=== PATIENT | male | born 1930 | race Caucasian/White ===

== ENCOUNTER 2016-10-03 08:18 | Emergency (ER) | payer MEDICARE, BC ==
[~2016-10-03] VITALS: Ht 175.3 cm; Wt 101.0 kg
[~2016-10-03 08:18] MED LIST: ALBU18HF2 INH; ALLO100T PO; AMLO10TA2 PO; ASCO500C16 PO; DABI150C PO; FURO-153 PO; GABA-338 PO; GLIP-192 PO; HYDR-4180 PO; ISOS30TA PO; LOSA100T44 PO; MECL-103 PO; METF500T4 PO; METO-277 PO; NITR0.4T39 SL; OMEP40CA52 PO; POTA10TA10 PO; PRAV80TA23 PO; [UNRECOGNIZED DRUG - CODE] PO
[2016-10-03 08:20] VITALS: Ht 175.3 cm; Wt 101.0 kg
--- OUTSIDE RECORDS SUMMARY | 2016-10-03 08:25 | XMS REPORT | Continuity of Care Document ---
Author Author [facility] Organization [facility] Address Unknown Phone Unavailable Support Name Relationship Address Phone CAIO MURRAY DO Caregiver [employer] [address] [place] [address] [place] [address] ANTIONE HANNA Next Of Kin [address] [place] [address] Insurance Providers Payer Name Policy Number Subscriber Name Relationship Medicare [id number] Subha Turner 18 Self [facility] [id number] Subha Turner 18 Self Advance Directives Directive Response Recorded Date/Time Ordered Resuscitation Status Full Code 05/21/14 5:27pm Resuscitation Documents on File Y "I THINK SO" 05/21/14 5:01pm Chief Complaint and Reason for Visit Chief Complaint DEHYDRATION,INFLUENZA Reason for Visit Influenza A Problems Medical Problems Problem Onset Date Status CAD (coronary artery disease) 04/26/2014 Active Influenza A 05/22/2014 Active Surgical Problems Problem Onset Date Recorded Date/Time Status S/P angioplasty 04/27/2014 04/27/2014 10:34am Active Medications Medication Dose Route Sig Days/Qty Instructions Order Date Discontinued Date Status [Metformin] 04/25/14 04/25/14 Discontinued Dabigatran Etexilate Mesylate 1 Cap PO TWICE A DAY TAKE WITH FULL GLASS OF WATER. 04/25/14 05/22/14 Discontinued Allopurinol 1 Tab PO DAILY 04/25/14 Active Amlodipine Besylate 10 Mg PO DAILY 04/25/14 Active Ubidecarenone DAILY 04/25/14 Active Cinnamon Bark 1 Mg PO DAILY 04/25/14 05/22/14 Discontinued Fenofibrate 04/25/14 Active Folic Acid 1 Tab PO DAILY 04/25/14 Active Glipizide 1 Tab PO DAILY 04/25/14 Active Hydralazine HCl 1 Tab PO DAILY 04/25/14 04/26/14 Discontinued Isosorbide Mononitrate 1 Tab PO DAILY 04/25/14 Active Potassium Chloride DAILY 04/25/14 Active Furosemide 1 Tab PO DAILY 04/25/14 Active Losartan Potassium 100 Mg PO DAILY 04/25/14 Active Meclizine HCl 25 Mg PO NEEDED Take 1 tablet, by mouth, 2 times a day. 04/25/14 05/22/14 Discontinued Metoprolol Succinate 50 Mg PO DAILY 04/25/14 Active Omeprazole 1 Cap PO DAILY 04/25/14 Active Pravastatin Sodium BEDTIME 04/25/14 Active Ascorbic Acid 1 Cap PO DAILY 04/25/14 Active Vitamin E Mixed 400 Unit PO DAILY 04/25/14 05/22/14 Discontinued Metformin HCl 500 Mg PO TWICE A DAY 04/25/14 Active Acetaminophen/Diphenhydramine 1 Tab PO BEDTIME PRN INSOMNIA 04/26/14 05/22/14 Discontinued Gabapentin 1 Cap PO TWICE A DAY 04/26/14 Active Hydralazine HCl 1 Tab PO BEDTIME BEST TAKEN WITH MEALS. 04/26/1405/22 Discontinued Saw [place] 80 Mg PO TWICE A DAY 04/26/14 05/22/14 Discontinued Hydralazine HCl 1 Tab PO BEDTIME 04/26/14 05/21/14 Discontinued Nitroglycerin 0.4 Mg SL NEEDED PRN CHEST PAIN 04/26/14 Active Fluticasone Propionate 2 Jessie EA NOSTRIL DAILY 04/26/14 Active Garlic 1 Cap PO DAILY 04/26/14 05/22/14 Discontinued Aspirin 81 Mg PO DAILY 30 Days 04/26/14 05/22/14 Discontinued Dabigatran Etexilate Mesylate 1 Cap PO TWICE A DAY TAKE WITH FULL GLASS OF WATER. 05/21/14 Active Meclizine HCl 25 Mg PO TWICE A DAY PRN VERTIGO 1 Qty 05/22/14 Active Acetaminophen 650 Mg PO Every 6 Hours PRN FEVER/DISCOMFORT 1 Days 05/22 Active Benzonatate 100 Mg PO THREE TIMES A DAY PRN COUGH 42 Qty 05/22/14 Active Oseltamivir Phosphate 75 Mg PO TWICE A DAY 4 Days Take 2 (75 mg) capsules , by mouth, two times a day. 05/22/14 Active Albuterol Sulfate 2 Puff INH Every 6 Hours PRN COUGH/CONGESTION 1 Days 05/22/14 Active Social History Social History Problem Response Recorded Date/Time Hx Substance Use No 04/27/2014 9:57am Hx Alcohol Use No 04/27/2014 9:57am Has the pt used tobacco in the last 12 months No 05/21/2014 5:02pm Query Response Start Date Stop Date Smoking Status Never smoker Hospital Discharge Instructions Instructions: Care Instructions: Reason for Hospitalization: DEHYDRATION/INFLUENZA I was in the hospital because (patient own words): "to SEE WHAT STRAIN OF FLU I HAVE" Discharge Activity: ACTIVITY TOLERATED Follow Up Appointments: DR MURRAY [phone] TUESDAY MAY 27, 2014 AT 9:30 AM WITH LAB DONE THAT DAY DR MULLER [phone] TuesdayJUNE 06 AT 1:20 PM Patient Instructions: RETURN TO CARE IMMEDIATELY IF COUGH, SHORTNESS OF BREATH, FEVER, MUSCLE ACHES,JOINT ACHES WORSEN. ALSO IF COUGH UP BLOOD OR CHEST PAIN OCCUR. PATIENT TO WEAR 1 LITER OF OXYGEN AT NIGHT. Condition at time of discharge: Good concerns. If your concern is of urgent nature, please present to the Emergency Department. Condition at time of discharge: Good Plan of Care Discharge Date 05/22/14 8:20pm Disposition 01 DISCHARGED HOME, SELF-CARE Instructions/Education Provided DI for Influenza -- Adult Prescriptions See Medications Section Functional Status Query Response Date Recorded Physical Hygiene Self May 22, 2014 6:04pm Disabilities Hearing May 22, 2014 6:04pm Devices Used Glasses Walker May 22, 2014 6:04pm Dressing Self May 22, 2014 6:04pm Ambulation Self May 22, 2014 6:04pm Diet Self May 22, 2014 6:04pm Mental Status Alert Oriented May 22, 2014 6:04pm Disabilities Hearing May 22, 2014 6:04pm Devices Used Glasses Walker May 22, 2014 6:04pm Physical Hygiene Self May 22, 2014 6:04pm Dressing Self May 22, 2014 6:04pm Ambulation Self May 22, 2014 6:04pm Diet Self May 22, 2014 6:04pm Allergies, Adverse Reactions, Alerts Allergen Type Severity Reaction Status Last Updated NKDA Allergy Unknown Active 04/25/14 Immunizations Name Given Type Hx Influenza Vaccination Y MAR 2014 Historical Hx Pneumococcal Vaccination Y UNKNOWN DATE Historical Hx Influenza Vaccination Y MAR 2014 Historical Vital Signs Acute Vital Signs Vital Response Date/Time Temperature (Fahrenheit) 98.1 deg F (96.8 - 99.1) Temperature (Calculated Celsius) 36.93521 degrees C (36.0 - 37.3) Temperature Source Temporal Pulse Rate (adult) 82 bpm (60 - 100) Respiratory Rate 20 breaths/min (10 - 20) O2 Sat by Pulse Oximetry 93 % (90 - 100) Oxygen Delivery Method Room Air Blood Pressure 144/75 mm Hg Blood Pressure Source Automatic Cuff Height 5 ft 9 in Weight 194 lb Body Mass Index 28.0 kg/m^2 Results Test Source Date Result Interp. Ref. Range Comments Activated Partial Thromboplast Time May 22, 2014 3:13pm 34.6 SEC N 24-36 COMMENT do nowOrdering r/o VTE No Alanine Aminotransferase (ALT/SGPT) May 22, 2014 6:09am 29 U/L N 21 -72 Albumin May 22, 2014 6:09am 3.4 G/DL L 3.5-5.0 Albumin/Globulin Ratio May 22, 2014 6:09am 1.3 RATIO N 1.1-2.2 Alkaline Phosphatase May 22, 2014 6:09am 70 U/L N 38-126 Anion Gap May 22, 2014 6:09am 8 MEQ/L N 5-15 Aspartate Amino Transf (AST/SGOT) May 22, 2014 6:09am 21 U/L N 17- 59 BUN/Creatinine Ratio May 22, 2014 6:09am 23 RATIO N 6-26 Band Neutrophils # May 21, 2014 5:50pm 0.9 T/MM3 - Band Neutrophils % May 21, 2014 5:50pm 5.0 % N 0-6 Basophils # (Auto) May 22, 2014 3:13pm 0.1 T/MM3 N 0-0.2 COMMENT do now Basophils # (Manual) May 21, 2014 5:50pm 0.0 T/MM3 N 0-0.2 Basophils % (Manual) May 21, 2014 5:50pm 0.0 % N 0-2 Basophils (%) (Auto) May 22, 2014 3:13pm 0.4 % N 0-2 COMMENT do now Blood Urea Nitrogen May 22, 2014 6:09am 21.0 MG/DL H 9-20 C-Reactive Protein May 21, 2014 5:50pm 182.5 MG/L H 0-9 Calcium Level May 22, 2014 6:09am 8.9 MG/DL N 8.4-10.2 Calculated Osmolality May 22, 2014 6:09am 268 MOSM/KG N 261-280 Carbon Dioxide Level May 22, 2014 6:09am 26 MEQ/L N 22-30 Chemistry Specimen Hemolysis May 22, 2014 6:09am < 15 0-25 0-25 : No Hemolysis.26-70: Slight Hemolysis - can falsely elevate K and Urine Protein. 71-285: Moderate Hemolysis - can falsely elevate K, Troponin I, CA 19-9, PTH, CSF GLucose, and Urine Protein, and can falsely decrease Phenytoin. 286-999: Gross Hemolysis - can falsely elevate K, Troponin I, CA 19-9, PTH, CSF Glucose, and Urine Protine, and can falsely decrease Phenytoin. Recommend specimen recollection. Chloride Level May 22, 2014 6:09am 103 MEQ/L N 98-107 Cholesterol Level April 27, 2014 4:21am 124 MG/DL L 132-199 Cholesterol/HDL Ratio April 27, 2014 4:21am 3.6 RATIO N 0-5.0 Creatinine May 22, 2014 6:09am 0.9 MG/DL DN 0.8-1.5 D-Dimer May 22, 2014 3:13pm < 150 NG/ML 0-230 <230 NG/ML D-DU= PRESUMPTIVE NEGATIVE FOR PE OR DVT>230 NG/ML D-DU=ADDITIONAL EVAL FOR PE OR DVT RECOMMENDED Eosinophils # (Auto) May 22, 2014 3:13pm 0.2 T/MM3 N 0-0.5 COMMENT do now Eosinophils # (Manual) May 21, 2014 5:50pm 0.0 T/MM3 N 0-0.5 Eosinophils % (Manual) May 21, 2014 5:50pm 0.0 % N 0-4 Eosinophils (%) (Auto) May 22, 2014 3:13pm 1.2 % N 0-4 COMMENT do now Erythrocyte Sedimentation Rate May 21, 2014 5:50pm 18 MM/HR H 0-15 Fibrin Degradation Products May 22, 2014 3:13pm Negative UG/ML - COMMENT do nowOrdering r/o VTE No Fibrinogen May 22, 2014 3:13pm 565 MG/DL H 135-357 COMMENT do nowOrdering r/o VTE No Globulin May 22, 2014 6:09am 2.7 G/DL N 2.4-3.6 Glomerular Filtration Rate Calc May 22, 2014 6:09am 81 - Glucometer May 22, 2014 5:32pm 127 mg/dL H 75-110 Glucose Level May 22, 2014 6:09am 109 MG/DL N 75-110 Group A Streptococcus Screen May 22, 2014 12:16am Negative - Strep culture confirmation to follow HDL Cholesterol Direct April 27, 2014 4:21am 34 MG/DL L 40-60 Hematocrit May 22, 2014 3:13pm 34.7 % L 41-53 COMMENT do now Hemoglobin May 22, 2014 3:13pm 11.8 GM/DL L 13.5-17.5 COMMENT do now Icterus Index May 22, 2014 6:09am < 2 0-7 Immature Granulocyte # (Auto) May 22, 2014 3:13pm 0.04 T/MM3 H 0.00 -0.03 COMMENT do now Immature Granulocyte % (Auto) May 22, 2014 3:13pm 0.3 % N 0.0-0.5 COMMENT do now Immunoglobulin G May 21, 2014 5:50pm 709.57 MG/DL N 700-1600 Immunoglobulin M May 21, 2014 5:50pm 54.62 MG/DL N 40-230 LDL Cholesterol, Calculated April 27, 2014 4:21am 52.8 L 66-159 Lymphocytes # (Auto) May 22, 2014 3:13pm 1.3 T/MM3 N 1-4.8 COMMENT do now Lymphocytes # (Manual) May 21, 2014 5:50pm 1.1 T/MM3 N 1-4.8 Lymphocytes % (Manual) May 21, 2014 5:50pm 6.0 % L 23-45 Lymphocytes (%) (Auto) May 22, 2014 3:13pm 9.1 % L 23-45 COMMENT do now Magnesium Level May 21, 2014 5:50pm 1.8 MG/DL N 1.6-2.3 Mean Corpuscular Hemoglobin May 22, 2014 3:13pm 28.2 UUG N 26-34 COMMENT do now Mean Corpuscular Hemoglobin Concent May 22, 2014 3:13pm 34.0 GM/DL N 31-37 COMMENT do now Mean Corpuscular Volume May 22, 2014 3:13pm 82.8 UM3 N 80-100 COMMENT do now Mean Platelet Volume May 22, 2014 3:13pm 10.1 UM3 N 9.4-12.4 COMMENT do now Monocytes # (Auto) May 22, 2014 3:13pm 1.5 T/MM3 H 0-0.8 COMMENT do now Monocytes # (Manual) May 21, 2014 5:50pm 0.0 T/MM3 N 0-0.8 Monocytes % (Manual) May 21, 2014 5:50pm 0.0 % N 0-9.0 Monocytes (%) (Auto) May 22, 2014 3:13pm 10.9 % H 0-9.0 COMMENT do now Neutrophils # (Auto) May 22, 2014 3:13pm 10.7 T/MM3 H 1.8-7.7 COMMENT do now Neutrophils # (Manual) May 21, 2014 5:50pm 16.1 T/MM3 H 1.8-7.7 Neutrophils % (Manual) May 21, 2014 5:50pm 89.0 % H 33-66 Neutrophils (%) (Auto) May 22, 2014 3:13pm 78.1 % H 33-66 COMMENT do now Phosphorus Level May 21, 2014 5:50pm 3.1 MG/DL N 2.5-4.5 Platelet Count May 22, 2014 3:13pm 124 T/MM3 L 130-400 COMMENT do now Potassium Level May 22, 2014 6:09am 3.6 MEQ/L N 3.6-5 Procalcitonin May 21, 2014 5:50pm 0.38 NG/ML - PCT </=0.5 ng/mL - sepsis not likely;PCT >0.5 and </=2 ng/mL - sepsis possible; PCT >2 ng/mL - sepsis likely; PCT >/=10 ng/mL - systemic inflammatory response - sepsis or septic shock highly indicated. Prothromb Time International Ratio May 22, 2014 3:13pm 1.28 H 0.81- 1.09 THERAPUTIC RANGE=2.00-3.00 FOR ANTI-THROMBOSIS THERAPUTIC RANGE=2.50- 3.50 FOR IMPLANTED VALVE RDW Standard Deviation May 22, 2014 3:13pm 49.8 FL N 36.9-50.2 COMMENT do now Red Blood Count May 22, 2014 3:13pm 4.19 M/MM3 L 4.50-5.90 COMMENT do now Sodium Level May 22, 2014 6:09am 137 MEQ/L N 134-144 Total Bilirubin May 22, 2014 6:09am 0.90 MG/DL N 0.20-1.30 Total Creatine Kinase May 21, 2014 5:50pm 196 U/L H 55-170 Total Protein May 22, 2014 6:09am 6.1 G/DL L 6.3-8.2 Triglycerides Level April 27, 2014 4:21am 186 MG/DL H 40-160 Troponin I May 22, 2014 6:09am 0.071 ng/ml N 0-0.12 Turbidity May 22, 2014 6:09am < 20 0-20 Urinalysis Comment May 21, 2014 9:30pm Microscopic not ind. - Has specimen been collected/obtained? Y Urine Bilirubin May 21, 2014 9:30pm Negative - Has specimen been collected/obtained? Y Urine Blood May 21, 2014 9:30pm Negative - Has specimen been collected/obtained? Y Urine Collection Type May 21, 2014 9:30pm Cleancatch-midstream - Has specimen been collected/obtained? Y Urine Color May 21, 2014 9:30pm Yellow - Has specimen been collected/obtained? Y Urine Glucose (UA) May 21, 2014 9:30pm Negative - Has specimen been collected/obtained? Y Urine Ketones May 21, 2014 9:30pm Negative - Has specimen been collected/obtained? Y Urine Leukocyte Esterase May 21, 2014 9:30pm Negative - Has specimen been collected/obtained? Y Urine Nitrite May 21, 2014 9:30pm Negative - Has specimen been collected/obtained? Y Urine Protein May 21, 2014 9:30pm Negative - Has specimen been collected/obtained? Y Urine Specific [place] May 21, 2014 9:30pm 1.020 - Has specimen been collected/obtained? Y Urine Turbidity May 21, 2014 9:30pm Clear - Has specimen been collected/obtained? Y Urine Urobilinogen May 21, 2014 9:30pm 1.0 EU/DL - Has specimen been collected/obtained? Y Urine pH May 21, 2014 9:30pm 5.5 - Has specimen been collected/ obtained? Y VLDL Cholesterol April 27, 2014 4:21am 37.2 MG/DL H 0-28 Venous Blood Lactate May 21, 2014 5:50pm 2.0 MMOL/L N 0.6-2.2 White Blood Count May 22, 2014 3:13pm 13.7 T/MM3 H 4.5-11.0 COMMENT do now Blood Culture Peripheral Blood May 21, 2014 5:50pm NO GROWTH AFTER 24 HOURS Streptococcus pneumoniae Antigen (M Urine May 21, 2014 9:30pm Name: SUBHA TURNER Unit #: [id number] : 1930 [facility]: [id number] / Svc: [facility] DOS: Signed Report #: [id number] DIAGNOSTIC IMAGING REPORT TYPE OF EXAM: CHEST, PA & LATERAL Dictated By: ZORAIDA CHAND MD INDICATION: ITS.REASON: INFLUENZA A , DEHYDRATION,HEMAPHYSIS CHEST, PA LATERAL: No pneumonia, interstitial edema, or failure. No cardiomegaly. No vascular congestion. I cannot exclude a subtle pneumonitis in one of the lower lobes posteriorly. This can only be visualized on the lateral view of the chest. This is an equivocal finding, however. . Procedures Procedure Status Date Provider(s) ROUTINE VENIPUNCTURE completed 04/26/14 ROUTINE VENIPUNCTURE completed 04/26/14 METABOLIC PANEL TOTAL CA completed 04/26/14 METABOLIC PANEL TOTAL CA completed 04/26/14 LIPID PANEL completed 04/26/14 BL SMEAR W/DIFF WBC COUNT completed 04/26/14 COMPLETE CBC W/AUTO DIFF WBC completed 04/26/14 COMPLETE CBC AUTOMATED completed 04/26/14 PRQ REVASC BYP GRAFT 1 VSL completed 04/26/14 ZEKE MULLER MD ELECTROCARDIOGRAM TRACING completed 04/26/14 L HRT ART/GRFT ANGIO completed 04/26/14 ZEKE MULLER MD [id number] ITEM OR SERVICE completed 04/26/14 [id number] ITEM OR SERVICE completed 04/26/14 [id number] ITEM OR SERVICE completed 04/26/14 [id number] ITEM OR SERVICE completed 04/26/14 [id number] ITEM OR SERVICE completed 04/26/14 [id number] ITEM OR SERVICE completed 04/26/14 [id number]/PERFUSION CAPABILITY) completed 04/26/14 [id number]"CLOSURE DEVICE, VASCULAR (IMPLANTABLE/INSERTABLE)" completed 04/26/14 [id number] WIRE completed 11/07/14 [id number]"CATHETER, GUIDING (MAY INCLUDE INFUSION/PERFUSION CAP completed [id number] THAN PEEL-AWAY completed 04/26/14"HOSPITAL OBSERVATION SERVICE, PER HOUR" completed 04/26/14"HOSPITAL OBSERVATION SERVICE, PER HOUR" completed 04/26/14"HOSPITAL OBSERVATION SERVICE, PER HOUR" completed 04/26/14"INJECTION, HEPARIN SODIUM, PER 1000 UNITS" completed 04/26/14"INJECTION, HEPARIN SODIUM, PER 1000 UNITS" completed 04/26/14"INJECTION, MIDAZOLAM HYDROCHLORIDE, PER 1 MG" completed 04/26/14"INJECTION, FENTANYL CITRATE, 0.1 MG" completed 04/26/14"INFUSION, NORMAL SALINE SOLUTION , 1000 CC" completed 04/26/14"INFUSION, NORMAL SALINE SOLUTION , 1000 CC" completed 04/26/14"INFUSION, NORMAL SALINE SOLUTION , 1000 CC" completed 04/26/14"LOW OSMOLAR CONTRAST MATERIAL, 300-399 MG/ML IODINE C completed Encounters Encounter Location Date/Time Discharged Inpatient [facility] 05/21/14 4:25pm Departed [facility] 04/26/14 10:42am Registered [facility] 02/27/14 7:23am Recent Diagnosis Influenza A
--- OUTSIDE RECORDS SUMMARY | 2016-10-03 08:25 | XMS REPORT | Continuity of Care Document ---
Author Author [facility] Organization [facility] Address Unknown Phone Unavailable Support Name Relationship Address Phone LINDSAY ANTHONY DO Caregiver [address] [place] [address] Unavailable VÍCTOR BROOKS MD Caregiver [address] [place] [address] [place] [address] Unavailable ANTIONE HANNA Next Of Kin [address] [place] [address] Insurance Providers Guarantor Subha Turner Address [address] [place] [address] Email [email or web address] Payer Medicare Policy Number [id number] Subscriber's Name Subha Turner Relationship 18 Self Effective Date [facility] Federal Policy Number [id number] Subscriber's Name Subha Turner Relationship 18 Self Group Number [id number] Effective Date 91 Advance Directives Directive Response Recorded Date/Time Advanced Directives Type None 04/17/16 5:12am Chief Complaint and Reason for Visit Chief Complaint General Reason for Visit Lightheadedness Atrial fibrillation and flutter Problems Active Problems Medical Problem Onset Date Status Atrial fibrillation and flutter Unknown Chronic CAD (coronary artery disease) 04/26/2014 Chronic Chest pain Unknown Resolved Diarrhea Unknown Resolved Influenza A 05/22/2014 Acute PAD (peripheral artery disease) Unknown Chronic Pulmonary HTN Unknown Chronic Surgical Problem Onset Date Status S/P angioplasty 04/26/2014 Chronic Past Problems Medical Problem Onset Date Lightheadedness Unknown Medications Current Home Medications Medication Dose Units Route Directions Days Qty Instructions Start Date Acetaminophen (Acetaminophen Er) 650 Mg Tablet.er 1 Tab Oral Every 6 Hours as needed for Pain 12/18/14 Albuterol Sulfate (Ventolin Hfa 90 Mcg/Actuation) 18 Gm Hfa.aer.ad 2 Puff Inhalation Every 6 Hours as needed for Cough/Congestion 1 Days 05/22/14 Allopurinol 100 Mg Tablet 1 Tab Oral Daily 04/25/14 Amlodipine Besylate 10 Mg Tablet 1 Tab Oral Bedtime 04/25/14 Ascorbic Acid (Vitamin C) 500 Mg Capsule.er 1 Cap Oral Daily 12/01 Dabigatran Etexilate Mesylate (Pradaxa) 150 Mg Capsule 1 Cap Oral Twice A Day 05/21/14 Furosemide (Lasix) 40 Mg Tablet 1 Tab Oral Twice A Day 04/25/14 Gabapentin 300 Mg Capsule 1 Cap Oral Twice A Day 04/26/14 Glipizide (Glipizide Xl) 10 Mg Tab.er.24 2 Tab Oral Daily Hydralazine Hcl 25 Mg Tablet 1 Tab Oral Three Times Daily With Meals BEST TAKEN WITH MEALS. 04/17/16 Isosorbide Mononitrate (Imdur) 30 Mg Tab.er.24h 1 Tab Oral Daily 04/25/14 Losartan Potassium 100 Mg Tablet 1 Tab Oral Daily 04/25/14 Meclizine Hcl 25 Mg Tablet 1 Tab Oral Q6h/0300,0900,1500,2100 07/04 Metformin Hcl 500 Mg Tablet 1 Tab Oral Twice A Day 04/25/14 Metoprolol Succinate 50 Mg Tab.er.24h 1 Tab Oral Daily 04/25/14 Nitroglycerin 0.4 Mg Tab.subl 1 Tab Sublingual Every 5 Minutes X 3 as needed for Chest Pain 04/26/14 Omeprazole 40 Mg Capsule.dr 1 Cap Oral Before Breakfast 04/25/14 Potassium Chloride (Klor-Con 10) 10 Meq Tablet.er 2 Tab Oral Daily 04/25/14 Pravastatin Sodium 80 Mg Tablet 1 Tab Oral Bedtime 04/25/14 Past Home Medications Medication Directions Ordered Status Acetaminophen/Diphenhydramine (Acetaminophen Pm Caplet) 1 Each Tablet, 1 Tab Oral Bedtime as needed for Insomnia 04/26/14 Discontinued Aspirin (Aspirin Ec) 81 Mg Tablet.dr, 81 Mg Oral Daily 04/26/14 Discontinued Cinnamon Bark (Cinnamon) 500 Mg Capsule, 1 Mg Oral Daily 04/25/14 Discontinued Dabigatran Etexilate Mesylate (Pradaxa) 150 Mg Capsule, 1 Cap Oral Twice A Day 04/25/14 Discontinued Fenofibrate 160 Mg Tablet, 1 Tab Oral Daily 04/25/14 Discontinued Fluticasone Propionate (Flonase 50 Mcg/Actuation Nasal [place]) 16 Gm [place].susp , 2 [place] Each Nostril Daily 04/26/14 Discontinued Folic Acid 1 Mg Tablet, 1 Tab Oral Daily 04/25/14 Discontinued Garlic 1 Each Capsule, 1 Cap Oral Daily 04/26/14 Discontinued Hydralazine Hcl 10 Mg Tablet, 1 Tab Oral Bedtime 04/26/14 Discontinued Hydralazine Hcl 10 Mg Tablet, 1 Tab Oral Bedtime 04/26/14 Discontinued Hydralazine Hcl 25 Mg Tablet, 1 Tab Oral Daily 04/25/14 Discontinued Meclizine Hcl 25 Mg Tablet, 25 Mg Oral As Needed 04/25/14 Discontinued Metformin , 04/25/14 Discontinued Saw [place] 80 Mg Capsule, 80 Mg Oral Twice A Day 04/26/14 Discontinued Ubidecarenone (Co Q-10) 100 Mg Capsule, 1 Tab Oral Daily 04/25/14 Discontinued Vitamin E Mixed (Vitamin E) 400 Unit Capsule, 400 Unit Oral Daily 04/25/14 Discontinued Social History Social History Problem Response Recorded Date/Time Onset Date Status Hx Substance Use No 04/17/2016 5:12am Not Applicable Not Applicable Hx Alcohol Use No 04/17/2016 5:12am Not Applicable Not Applicable Has the pt used tobacco in the last 12 months No 12/24/2015 12:21pm Not Applicable Not Applicable Tobacco Usage none 05/22/2014 9:56pm Not Applicable Not Applicable Query Response Start Date Stop Date Smoking Status Never smoker Hospital Discharge Instructions No hospital discharge instructions. Plan of Care Discharge Date 04/17/16 8:40am Disposition 01 DISCHARGED HOME, SELF-CARE Condition at Discharge Improved Instructions/Education Provided Combating Dizziness in Older Adults DI for Atrial Fibrillation Prescriptions See Medication Section Referrals KEMAL AGUILA MD Address: [address] [place] [address] [place] [phone] Note: LINDSAY ANTHONY DO Order Date: 3 Days Address: [address] [place] [address] [place] [phone] Note: FOLLOW UP IN NEXT 2-3 DAYS FOR RE-EVALUATION Additional Instructions/Education 1) CONTINUE HOME MEDICATIONS DIRECTED 2) DRINK PLENTY OF FLUIDS, ESPECIALLY WATER 3) FOLLOW UP WITH DR. ANTHONY IN NEXT 2-3 DAYS FOR RE-EVALUATION 4) RETURN TO ER NEEDED FOR WORSENING SYMPTOMS OR FURTHER CONCERNS Care Plan and Goals Physician Care Plan Problem: 1) LIGHTHEADEDNESS 2) ATRIAL FIBRILLATION Goal: Follow up with primary care provider Instructions: Take medications and follow care plan as discussed/written Functional Status No functional status results. Allergies, Adverse Reactions, Alerts No known allergies. Immunizations Query Response on File Recorded Date/Time Hx Influenza Vaccination Y MAR 2015 12/24/15 12:21pm Hx Pneumococcal Vaccination Y WITHIN PAST 5 YEARS 12/24/15 12:21pm Hx Influenza Vaccination Y MAR 2015 12/24/15 12:21pm Vital Signs Acute Vital Signs Vital Response Date/Time Temperature (Fahrenheit) 97.8 deg F (96.8 - 99.1) 04/17/2016 8:40am Temperature (Calculated Celsius) 36.55889 degrees C (36.0 - 37.3) 04/17/2016 8:40am Pulse Rate (adult) 65 bpm (60 - 100) 04/17/2016 8:40am Respiratory Rate 18 breaths/min (10 - 20) 04/17/2016 8:40am O2 Sat by Pulse Oximetry 97 % (90 - 100) 04/17/2016 8:40am Blood Pressure 138/63 mm Hg 04/17/2016 8:40am Height (Feet) 5 feet 04/17/2016 5:12am Height (Inches) 10.00 inches 04/17/2016 5:12am Weight (Kilograms) 96.100 kg 04/17/2016 5:12am Body Mass Index (BMI) 30.0 04/17/2016 5:12am Results Laboratory Results Test Name Result Units Flags Reference Collection Date/Time Result Date/ Time Comments White Blood Count 8.2 T/MM3 4.5-11.0 04/17/2016 5:26am 04/17/2016 5: 35am Red Blood Count 4.76 M/MM3 4.50-5.90 04/17/2016 5:26am 04/17/2016 5: 35am Hemoglobin 13.1 GM/DL L 13.5-17.5 04/17/2016 5:26am 04/17/2016 5:35am Hematocrit 39.2 % L 41-53 04/17/2016 5:26am 04/17/2016 5:35am Mean Corpuscular Volume 82.4 UM3 80-100 04/17/2016 5:26am 04/17/2016 5: 35am Mean Corpuscular Hemoglobin 27.5 UUG 26-34 04/17/2016 5:2015 5:35am Mean Corpuscular Hemoglobin Concent 33.4 GM/DL 31-37 04/17/2016 5:04/17/2016 5:35am RDW Standard Deviation 49.1 FL 36.9-50.2 04/17/2016 5:04/17/2016 5 :35am Platelet Count 153 T/MM3 130-400 04/17/2016 5:04/17/2016 5:35am Mean Platelet Volume 10.2 UM3 9.4-12.4 04/17/2016 5:04/17/2016 5: 35am Neutrophils (%) (Auto) 60.0 % 33-66 04/17/2016 5:04/17/2016 5: 35am Lymphocytes (%) (Auto) 25.6 % 23-45 04/17/2016 5:04/17/2016 5: 35am Monocytes (%) (Auto) 9.0 % 0-9.0 04/17/2016 5:04/17/2016 5:35am Eosinophils (%) (Auto) 4.0 % 0-4 04/17/2016 5:04/17/2016 5:35am Basophils (%) (Auto) 0.5 % 0-2 04/17/2016 5:04/17/2016 5:35am Immature Granulocyte % (Auto) 0.9 % H 0.0-0.5 04/17/2016 5:2015 5:35am Absolute Neutrophils (auto) 4.9 T/MM3 1.8-7.7 04/17/2016 5:2015 5:35am Absolute Lymphocytes (auto) 2.1 T/MM3 1-4.8 04/17/2016 5:2015 5:35am Absolute Monocytes (auto) 0.7 T/MM3 0-0.8 04/17/2016 5:04/17/2016 5:35am Absolute Eosinophils (auto) 0.3 T/MM3 0-0.5 04/17/2016 5:2015 5:35am Absolute Basophils (auto) 0.0 T/MM3 0-0.2 04/17/2016 5:04/17/2016 5:35am Absolute Immature Granulocyte (auto 0.07 T/MM3 H 0.00-0.03 04/17/2016 5: 04/17/2016 5:35am Icterus Index < 2 0-7 04/17/2016 5:04/17/2016 5:56am Chemistry Specimen Hemolysis < 15 0-25 04/17/2016 5:04/17/2016 5 :56am 0-25: Specimen Exhibited No Hemolysis. Turbidity < 20 0-20 04/17/2016 5:04/17/2016 5:56am Sodium Level 143 MEQ/L 134-144 04/17/2016 5:04/17/2016 5:56am Potassium Level 4.0 MEQ/L 3.6-5 04/17/2016 5:04/17/2016 5:56am Chloride Level 106 MEQ/L 98-107 04/17/2016 5:04/17/2016 5:56am Carbon Dioxide Level 21 MEQ/L L 22-30 04/17/2016 5:04/17/2016 5: 56am Anion Gap 16 MEQ/L H 5-15 04/17/2016 5:04/17/2016 5:56am Blood Urea Nitrogen 20.0 MG/DL 9-04/17/2016 5:04/17/2016 5: 56am Creatinine 1.1 MG/DL 0.8-1.5 04/17/2016 5:04/17/2016 5:56am BUN/Creatinine Ratio 18 RATIO 6-26 04/17/2016 5:04/17/2016 5:56am Glomerular Filtration Rate Calc 64 04/17/2016 5:04/17/2016 5: 56am Glucose Level 133 MG/DL H 75-110 04/17/2016 5:04/17/2016 5:56am Calculated Osmolality 280 MOSM/KG 261-280 04/17/2016 5:04/17/2016 5:56am Calcium Level 9.9 MG/DL 8.4-10.2 04/17/2016 5:am 04/17/2016 5:56am Troponin I < 0.012 ng/ml 0-0.12 04/17/2016 5:26am 04/17/2016 6:07am Troponin values with a difference of 55% increase from orginal troponin value represent a true biological DELTA value. (%increase Calc=Orginal Troponin value, divided by subsequent Troponin value, multiplied by 100) Thyroid Stimulating Hormone (TSH) 3.29 MIU/L 0.47-4.68 04/17/2016 5: 26am 04/17/2016 6:26am Urine Collection Type [place]ANCATCH-MIDSTREAM 04/17/2016 6:09am 2015 6:14am Urine Color YELLOW YELLOW 04/17/2016 6:09am 04/17/2016 6:14am Urine Turbidity CLEAR CLEAR 04/17/2016 6:09am 04/17/2016 6:14am Urine Specific [place] 1.010 L 1.015-1.025 04/17/2016 6:09am 2015 6:14am Urine pH 5.5 5.0-8.0 04/17/2016 6:09am 04/17/2016 6:14am Urine Leukocyte Esterase NEGATIVE NEGATIVE 04/17/2016 6:09am 2015 6:14am Urine Nitrite NEGATIVE NEGATIVE 04/17/2016 6:09am 04/17/2016 6:14am Urine Protein NEGATIVE NEGATIVE 04/17/2016 6:09am 04/17/2016 6:14am Urine Glucose (UA) NEGATIVE NEGATIVE 04/17/2016 6:09am 04/17/2016 6: 14am Urine Ketones NEGATIVE NEGATIVE 04/17/2016 6:09am 04/17/2016 6:14am Urine Urobilinogen 0.2 EU/DL NORMAL 04/17/2016 6:09am 04/17/2016 6: 14am Urine Bilirubin NEGATIVE NEGATIVE 04/17/2016 6:09am 04/17/2016 6: 14am Urine Blood NEGATIVE NEGATIVE 04/17/2016 6:09am 04/17/2016 6:14am Urinalysis Comment MICROSCOPIC NOT IND. 04/17/2016 6:09am 2015 6:14am Procedures No known history of procedures. Encounters Encounter Location Arrival/Admit Date Discharge/Depart Date Attending Provider Departed Emergency Room [facility] 04/17/16 5:12am 04/17/16 8: 40am VÍCTOR BROOKS MD Recent Diagnosis
--- OUTSIDE RECORDS SUMMARY | 2016-10-03 08:43 | XMS REPORT | Continuity of Care Document ---
Author Author [facility] Organization [facility] Address Unknown Phone Unavailable Support Name Relationship Address Phone CAIO MURRAY DO Caregiver [facility] [address] [place] [address] [place] [address] ANTIONE HANNA Next Of Kin [address] [place] [address] Insurance Providers Payer Name Policy Number Subscriber Name Relationship Medicare [id number] Subha Turner 18 Self [facility] [id number] Subha Turner 18 Self Advance Directives Directive [...] BEST TAKEN WITH MEALS. 04/26/1405/22 Discontinued Saw [place] 80 Mg PO TWICE A DAY 04/26/14 05/22/14 Discontinued Hydralazine HCl 1 Tab PO BEDTIME 04/26/14 05/21/14 Discontinued Nitroglycerin 0.4 Mg SL NEEDED PRN CHEST PAIN 04/26/14 Active Fluticasone Propionate 2 [place] EA NOSTRIL DAILY 04/26/14 Active Garlic 1 [...] ACTIVITY TOLERATED Follow Up Appointments: DR MURRAY [phone] TUESDAY MAY 27, 2014 AT 9:30 AM WITH LAB DONE THAT DAY DR MULLER [phone] TuesdayJUNE 06 AT 1:20 PM Patient Instructions: [...] F (96.8 - 99.1) Temperature (Calculated Celsius) 36.30294 degrees C (36.0 - 37.3) Temperature Source [...] Has specimen been collected/obtained? Y Urine Specific [place] May 21, 2014 9:30pm 1.020 - Has [...] 2014 9:30pm Name: SUBHA TURNER Unit #: [id number] : 1930 [facility]: [id number] [place] [facility] [place]: Signed Report #: [id number] DIAGNOSTIC IMAGING REPORT TYPE OF EXAM: CHEST, [...] ART/GRFT ANGIO completed 04/26/14 ZEKE MULLER MD [id number] ITEM OR SERVICE completed 04/26/14 [id number] ITEM OR SERVICE completed 04/26/14 [id number] ITEM OR SERVICE completed 04/26/14 [id number] ITEM OR SERVICE completed 04/26/14 [id number] ITEM OR SERVICE completed 04/26/14 [id number] ITEM OR SERVICE completed 04/26/14 [id number]/PERFUSION CAPABILITY) completed 04/26/14 [id number]"CLOSURE DEVICE, VASCULAR (IMPLANTABLE/INSERTABLE)" completed 04/26/14 [id number] WIRE completed 11/07/14 [id number]"CATHETER, GUIDING (MAY INCLUDE INFUSION/PERFUSION CAP completed [id number] THAN PEEL-AWAY completed 04/26/14"HOSPITAL OBSERVATION SERVICE, PER [...] completed Encounters Encounter Location Date/Time Discharged Inpatient [facility] 05/21/14 4:25pm Departed [facility] 04/26/14 10:42am Registered [facility] 02/27/14 7:23am Recent Diagnosis Influenza A
[2016-10-03 08:46] LABS: BASOPHILS # (AUTO) 0.1 T/MM3 (0-0.2); BASOPHILS % (AUTO) 0.4 % (0-2); EOSINOPHILS # (AUTO) 0.3 T/MM3 (0-0.5); EOSINOPHILS % (AUTO) 1.9 % (0-4); HCT - HEMATOCRIT 39.4 % (41-53); HGB - HEMOGLOBIN 12.8 GM/DL (13.5-17.5); IMMATURE GRANULOCYTE # (AUTO) 0.21 T/MM3 (0.00-0.03); IMMATURE GRANULOCYTE % (AUTO) 1.5 % (0.0-0.5); LYMPHOCYTES # (AUTO) 1.5 T/MM3 (1-4.8); LYMPHOCYTES % (AUTO) 10.5 % (23-45); MEAN CORPUSCULAR HGB 25.7 UUG (26-34); MEAN CORPUSCULAR HGB CONC(MCHC 32.5 GM/DL (31-37); MEAN CORPUSCULAR VOLUME 79.1 UM3 (80-100); MEAN PLATELET VOLUME 10.9 UM3 (9.4-12.4); MONOCYTES # (AUTO) 0.9 T/MM3 (0-0.8); MONOCYTES % (AUTO) 6.5 % (0-9.0); NEUTROPHILS #(AUTO)-ABSOLUTE 11.1 T/MM3 (1.8-7.7); NEUTROPHILS % (AUTO) 79.2 % (33-66); RED BLOOD COUNT 4.98 M/MM3 (4.50-5.90); WBC - WHITE BLOOD COUNT 14.1 T/MM3 (4.5-11.0)
[2016-10-03 08:50] LABS: INR 1.2 (0.76-1.04); PROTHROMBIN TIME 13.1 SEC (9.31-12.49)
[2016-10-03 08:55] LABS: ALBUMIN 4.6 G/DL (3.5-5.0); ALBUMIN/GLOBULIN RATIO 1.5 RATIO (1.1-2.2); ALKALINE PHOSPHATASE 89 U/L (38-126); ALT (SGPT) 24 U/L (21-72); ANION GAP 21 MEQ/L (5-15); AST (SGOT) 23 U/L (17-59); BUN/CREATININE RATIO 18 RATIO (6-26); CALCIUM 9.6 MG/DL (8.4-10.2); CHLORIDE 105 MEQ/L (98-107); CO2 - CARBON DIOXIDE 19 MEQ/L (22-30); GLOMERULAR FILTRATION RATE 71; GLUCOSE 248 MG/DL (75-110); POTASSIUM 4.4 MEQ/L (3.6-5); SODIUM 145 MEQ/L (134-144); TOTAL PROTEIN 7.6 G/DL (6.3-8.2)
--- NOTE | 2016-10-03 09:15 | NUR ---
REMOVAL NOSE CLAMP REMOVED.
[2016-10-03] MEDS ORDERED: ALBU18HF2 ORAL INH (09:47)
[2016-10-03] MEDS ORDERED: ACET-62 PO (09:47)
[2016-10-03] MEDS ORDERED: CHOL100055 PO (09:55)
[2016-10-03] MEDS ORDERED: VITA100C5 PO (09:55)
[2016-10-03] MEDS ORDERED: BENZ-16 PO (09:55)
--- NOTE | 2016-10-03 10:21 | ERPDOC ---
Departure Disposition Decision Date: Oct 03, 2016 Disposition Decision Time: 10:25 Disposition: 01 DISCHARGED HOME, SELF-CARE Impression Impression Impression: Primary Impression: Epistaxis Severity: Moderate Condition: Improved Seen By: Physician only Referrals: LINDSAY ANTHONY DO (Family) Problems/Meds/Labs Reviewed?: Yes Medications reviewed and manag: Yes Follow up care ordered?: Yes Mental Status: Alert, Oriented Scripts Fluticasone Propionate (Flonase Allergy Relief 50 mcg/actuation Nasal) 9.9 Ml [place].susp 1 SPRAY RAMEZ BID, #1 BOTTLE Prov: PALMA LIND MD 10/03/16 HPI General Chief Complaint: Nosebleed Stated Complaint: NOSE BLEED Time Seen by Provider: 08:37 HPI Nosebleed Initial Comments 85-year-old gentleman with spontaneous nosebleed on awakening this morning. No trauma no other issues with his nose. He tried to put some pressure and ice on it could not get it to stop, EMS was contacted and brought him to the emergency department for evaluation. They placed a nasal clamp and the bleeding stopped on the way in. Allergies: Coded Allergies: No Known Allergies (Unverified , 04/17/16) Past History Past Medical History Pt denies signifigant PMH Metabolic: diabetes, gout, hypercholesterolemia, hypertension ENMT: allergies, cataracts, other Cardiac: A-fib, CAD GI: GERD, other Male: BPH Neurological: neuropathy, other Surgical History General: colonoscopy, gallbladder, other Cardiac: cardiac bypass, cardiac stent Family History Family PMH: FOUND: CAD Vaccines Hx Influenza Vaccination: Yes (MAR 2015) Hx Pneumococcal Vaccination: Yes (WITHIN PAST 5 YEARS) Social History Substance Use Type: does not use Housing: assisted living facility Current Occupational Status: retired 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 Record Review Pertinent history updated: Yes Review of Systems ENMT Sinuses: see HPI Nose: see HPI Mouth/Throat: see HPI All other Systems All Other Systems: Reviewed and Negative Exam General Vital Signs: Temperature: 98.3, Source: Oral, Heart Rate: 107, Respiratory Rate : 17, BP: 148/76, Pulse Oximetry: 96 Height (Feet): 5 Height (Inches): 9.00 [place] Nosebleed Nose: erythema, swelling Mouth/Pharynx: amt of blood in pharynx (minimal), blood in pharynx, NOT FOUND: bleeding gums Respiratory (brief) Respiratory Brief: FOUND: clear all quiroga, equal bilaterally, NOT FOUND: rales Cardiovascular (brief) Cardiac Brief: FOUND: regular rate, regular rhythm, NOT FOUND: pedal edema Capillary Refill: <2 sec Neurologic RN Documented GCS Eye Opening: Verbal: Motor: Total: Differential Diagnoses Considering: Anti-coagulation, Dry Nasal Mucosa, Epistaxis Digitorum, Nasal [place] Damage, Septal Hematoma Progress Results/Orders Orders Procedure Category Date Status Time Cbc W/Auto LAB 10/03/16 Complete Diff-Reflex Manual Cmp - Comprehensive LAB 10/03/16 Complete Metabolic INR LAB 10/03/16 Complete Lab Results Laboratory Tests Test 10/03/16 08:40 White Blood Count 14.1T/MM3 Red Blood Count 4.98M/MM3 Hemoglobin 12.8GM/DL Hematocrit 39.4% Mean Corpuscular Volume 79.1UM3 Mean Corpuscular Hemoglobin 25.7UUG Mean Corpuscular Hemoglobin Concent 32.5GM/DL RDW Standard Deviation 46.9FL Platelet Count 175T/MM3 Mean Platelet Volume 10.9UM3 Immature Granulocyte % (Auto) 1.5% Neutrophils (%) (Auto) 79.2% Lymphocytes (%) (Auto) 10.5% Monocytes (%) (Auto) 6.5% Eosinophils (%) (Auto) 1.9% Basophils (%) (Auto) 0.4% Absolute Immature Granulocyte (auto 0.21T/MM3 Absolute Neutrophils (auto) 11.1T/MM3 Absolute Lymphocytes (auto) 1.5T/MM3 Absolute Monocytes (auto) 0.9T/MM3 Absolute Eosinophils (auto) 0.3T/MM3 Absolute Basophils (auto) 0.1T/MM3 Prothromb Time International Ratio 1.20 Turbidity < 20 Sodium Level 145MEQ/L Potassium Level 4.4MEQ/L Chloride Level 105MEQ/L Carbon Dioxide Level 19MEQ/L Anion Gap 21MEQ/L Blood Urea Nitrogen 18.0MG/DL Creatinine 1.0MG/DL Glomerular Filtration Rate Calc 71 BUN/Creatinine Ratio 18RATIO Glucose Level 248MG/DL Calculated Osmolality 289MOSM/KG Calcium Level 9.6MG/DL Total Bilirubin 0.80MG/DL Icterus Index < 2 Aspartate Amino Transf (AST/SGOT) 23U/L Alanine Aminotransferase (ALT/SGPT) 24U/L Alkaline Phosphatase 89U/L Total Protein 7.6G/DL Albumin 4.6G/DL Globulin 3.0G/DL Albumin/Globulin Ratio 1.5RATIO Chemistry Specimen Hemolysis < 15 Progress Progress Epistaxis resolved with nasal clamp which was placed during EMS transport. He was observed in the hospital and clamp removed, bleeding did not recur. No other intervention needed at this time. Recommend Flonase nasal spray one spray twice daily up each nostril. Follow up with primary care provider this week. PALMA LIND MD Oct 03, 2016 10:21
[2016-10-03] MEDS ORDERED: FLUT9.9S NAS (10:26)
[2016-10-03 10:40] VITALS: BP 135/67; PULSE 78; RESP 18; TEMP 98.3; O2SAT 97
== END 2016-10-03 11:35 | disposition home or self-care (01) ==
LOC: ED 08:18
DX: R04.0 Epistaxis (principal)
CPT/HCPCS: 80053; 85025; 85610